=== PATIENT | female | born 1965 | race Caucasian/White ===

== ENCOUNTER 2022-07-29 10:43 | Outpatient (CLI) | payer MEDICARE, SELFPAY ==
--- NOTE | ~2022-07-29 | XR_ITS ---
XR lumbar spine min 4V 07/29/2022 11:19 Indication: Low back pain Procedure: 5 views lumbar spine Comparison: No prior studies for comparison. Findings: There is disc narrowing at L4-5 and L5-S1. There is moderate facet hypertrophy at L5-S1. No acute fracture or traumatic malalignment. Pedicles intact. Sacral foramen are symmetric. There are cholecystectomy clips. Impression: 1: Mild-moderate lower lumbar spondylosis. Reviewed, dictated and finalized at location A. Impression: 1: Mild-moderate lower lumbar spondylosis.
[2022-07-29 11:43] LABS: Anion Gap 9 mmol/L (8-16); Blood Urea Nitrogen 12 mg/dL (7-17); Calcium 9.6 mg/dL (8.4-10.2); Carbon Dioxide 28 mmol/L (22-30); Chloride 96 mmol/L (98-107); Estimated Glomerular Filt Rate > 60; Glucose 86 mg/dL (65-110); Potassium 4.1 mmol/L (3.4-5.0); Sodium 133 mmol/L (137-145)
[2022-07-29 12:02] LABS: Appearance Urine Clear (Clear); Bilirubin Urine Negative (Negative); Blood Urine Negative (Negative); Color Urine Yellow (Yellow); Glucose Urine UA Negative (Negative); Ketones Urine Negative (Negative); Leukocyte Esterase Ur Trace LEU/UL (Negative); Nitrate Urine Negative (Negative); Protein Urine Negative (Negative); Specific Grav Ur <= 1.005 (1.001-1.035); Urobilinogen Urine 0.2 mg/dL (<2.0)
[2022-07-29 12:04] LABS: Basophils Percent Auto 0.6 % (0.2-1.2); Eosinophils Absolute Auto 0.1 K/mm3 (0-0.3); Eosinophils Percent Auto 1.3 % (0-4.4); Hematocrit 37.4 % (37.0-47.0); Hemoglobin 13.2 g/dL (12.0-15.0); Immature Granulocyte Absolute 0.02 K/mm3 (0.00-0.031); Immature Granulocyte Percent A 0.4 % (0-0.5); Lymphocytes Absolute Auto 1.42 K/mm3 (0.9-3.2); Lymphocytes Percent Auto 26.9 % (18.3-44.2); Mean Corpuscular HGB Conc 35.3 g/dl (32-36); Mean Corpuscular Hemoglobin 33.3 pg (26-34); Mean Corpuscular Volume 94.4 fl (80-100); Mean Platelet Volume 9.8 fl (7.4-10.4); Monocytes Absolute Auto 0.5 K/mm3 (0.1-0.6); Monocytes Percent Auto 8.5 % (2.6-8.5); Neutrophils Absolute Auto 3.3 K/mm3 (1.3-6.7); Neutrophils Percent Auto 62.3 % (45.5-73.1); Platelet Count Result 231 k/mm3 (150-375); Red Blood Count 3.96 M/mm3 (4.2-5.4); Red Cell Distribution Width 11.2 % (11.5-14.5); White Blood Count 5.3 K/mm3 (4.5-10.0)
[2022-07-29 12:10] LABS: RBC Urine 0-2 /hpf (0-2); WBC Urine 0-3 /hpf
[2022-07-29 12:11] LABS: Add Urine Microscopic? YES
== END 2022-07-29 10:44 | disposition home or self-care (01) ==
PROVIDERS: PCP Internal Medicine; Visit Provider Neurological Surgery
DX: Z01.818 Encounter for other preprocedural examination (principal); M54.9 Dorsalgia, unspecified; M47.816 Spondylosis without myelopathy or radiculopathy, lumbar region
CPT/HCPCS: 36415; 72110; 80048; 81001; 85025; 85610; 85730; 86850; 86900; 86901

== ENCOUNTER 2022-08-01 13:59 | Outpatient (CLI) | payer MEDICARE, SELFPAY ==
[2022-08-01 14:44] LABS: Prothrombin Time 13.1 Seconds (11.1-14.7)
[2022-08-01 14:45] LABS: Partial Thromboplastin Time 28.5 SECONDS (22.3-36.8)
== END 2022-08-01 14:00 | disposition home or self-care (01) ==
PROVIDERS: PCP Internal Medicine; Visit Provider Neurological Surgery
DX: D68.9 Coagulation defect, unspecified (principal)
CPT/HCPCS: 36415; 85610; 85730

== ENCOUNTER 2022-08-03 13:26 | Outpatient (CLI) | payer MEDICARE, SELFPAY ==
--- NOTE | 2022-08-03 13:37 | ECG_ITS ---
Measurements Intervals [place] Rate: 76 P: 37 FL: 151 QRS: 78 QRSD: 84 T: 44 QT: 392 QTc: 441 Interpretive Statements SINUS RHYTHM NONSPECIFIC ST-T-WAVE ABNORMALITY NO PREVIOUS ECG AVAILABLE FOR COMPARISON Electronically Signed On 08-03-2022 17:39:01 CDT by Windy Bae M.D.
== END 2022-08-03 13:27 | disposition home or self-care (01) ==
LOC: ANHSURGERY 13:30
PROVIDERS: PCP Internal Medicine; Visit Provider Neurological Surgery
DX: Z01.818 Encounter for other preprocedural examination (principal); M48.062 Spinal stenosis, lumbar region with neurogenic claudication; R94.31 Abnormal electrocardiogram [ECG] [EKG]
CPT/HCPCS: 36415; 86850; 86900; 86901; 93005

== ENCOUNTER 2022-08-14 03:08 | Day surgery (SDC) | payer MEDICARE, SELFPAY ==
[2022-08-02 09:44] VITALS: BMI 35.2
--- NOTE | 2022-08-02 09:59 | PC.NURSE ---
Report to the Outpatient Waiting Room, entrance under the green pavilion located off [facility], at time 6:30 on date 08/14/22. OR Time: 8:30. Time changes happen often and if your time is changed the preop area will call you the afternoon before. - You and your visitor will be asked to self-screen and do not enter if you have any COVID symptoms. - Only one visitor and NO children visitors are allowed at this time. - The patient visitor is requested to leave or wait in car when not with patient due to restrictions. - A mask is required within the hospital. Patients may have clear liquids (water, carbonated beverages, clear teas, apple juice) until 3 hours prior to surgery (5:30) with a maximum of 20 ounces. - No food from midnight until time of surgery Take the following medications with a SIP of water the morning of surgery: KLONOPIN, GABAPENTIN, PAIN PILL IF NEEDED, PAXIL, GEODON Medications to discontinue per physician: MELOXICAM Date to take last dose: 08/06/22 (PER DR PER PT) Please no make-up, nail turkish, hairspray, perfume, deodorant, or body powder the day of surgery. No jewelry (including any body piercings) or valuables the day of surgery, leave them at home. Please take a shower or bath the night before, or the morning of, surgery with an antibacterial soap. Wear comfortable, loose fitting clothing. - Jewelry must be removed prior to entering the operating room. Rings and piercings that are not removed may be cut off. - The hospital will not accept responsibility for valuables. - Please leave all valuables, including medications, at home the day of surgery. If you are going home after surgery, a licensed class b driver must drive you home. - NO public transportation without another adult. - We recommend that an adult stay with you for 24 hours following discharge. - We also recommend that you do not drive, make important decision, drink alcoholic beverages, or take any drugs that were not prescribed by your health care provider for at least 24 hours after your discharge time. Follow any additional instructions given to you from your surgeon. If you or anyone in your household have experienced Covid symptoms in the past week, please notify your surgeon or the nurse liaison at the phone number below for possible testing. Telephone instructions given to PT - WICHO GRAHAM and asked if any additional questions and then verbalized understanding. Patient advised to call surgeon office or pre surgery nurse liaison [phone] if any additional questions.
[2022-08-14] VITALS (9 sets, daily range): BP systolic 114–164; BP diastolic 68–96; PULSE 70–89; RESP 14–20; TEMP 36.2–37.2; O2SAT 96–100
--- NOTE | ~2022-08-14 | XR_ITS ---
EXAMINATION: XR fluoroscopy no charge DATE: 08/14/2022 10:53 INDICATION: Lumbar decompression TECHNIQUE: 2 lateral fluoroscopic images of the lumbar spine were obtained during procedure performed by Dr. Chance. Radiologist was not present for the imaging or procedure. The amount of fluoroscopy ti me used during this procedure was 0.1 minutes. COMPARISON: 07/29/2022 FINDINGS: Initial image demonstrates a linear metallic density likely either a probe or needle projecting over the posterior margin of the L4 spinous process. Subsequent image demonstrates soft tissue retractors project over the surgical soft tissue defect overlying the lower lumbar spinous processes. A metallic probe projects over the L4 inferior articular process. Visualized vertebral body and disc heights ar e normal with mild degenerative endplate changes. IMPRESSION: 1. Fluoroscopy utilized during surgical procedure at the lower lumbar spine. See procedure note for f urther detail. Reviewed, dictated and finalized at location A. IMPRESSION: 1. Fluoroscopy utilized during surgical procedure at the lower lumbar spine. Se e procedure note for further detail.
--- NOTE | 2022-08-14 07:24 | WPDANESEPPF ---
Anes - Initial Pre Proc Eval Procedure: Operation Date: 08/14/22 08:30 Proposed Procedures p L4-L5 Lumbar Decompression - Dominga Chance MD Date/Time: 08/14/22 07:24 Surgeon: Dominga Chance MD Pre Op Diagnosis: lumbar stenosis Patient Data Age: 56 Gender: F Height: 1.52 m Weight: 79.8 kg Last Vital Signs Temp 37.2 C 08/14/22 07:02 Pulse 89 08/14/22 07:02 Resp 16 08/14/22 07:02 BP 127/78 08/14/22 07:02 Pulse Ox 98 08/14/22 07:02 O2 Del Method Room Air 08/14/22 07:02 Allergies Allergy/AdvReac Type Severity Reaction Status Date / Time No Known Allergies Allergy Verified 08/14/22 06:57 Home Medications Medication Instructions Recorded Confirmed Type clonazepam 1 mg tablet 1 mg PO DAILY 07/26/22 08/14/22 History gabapentin 300 mg capsule 300 mg PO DAILY 07/26/22 08/14/22 History hydrocodone 7.5 mg-acetaminophen 1 tablet PO Q6H PRN Pain 07/26/22 08/14/22 History 325 mg tablet meloxicam 15 mg tablet 15 mg PO DAILY 07/26/22 08/14/22 History paroxetine HCl 10 mg tablet 10 mg PO DAILY 07/26/22 08/14/22 History ziprasidone HCl 80 mg capsule 80 mg PO BID 07/26/22 08/14/22 History pravastatin 40 mg tablet 40 mg PO DAILY 07/28/22 08/14/22 History temazepam 15 mg capsule 15 mg PO HS PRN Insomnia 08/02/22 08/14/22 History Patient hx anesthesia problems: none Family hx anesthesia problems: none Results Review: All pre-operative results and documents have been reviewed as part of the pre-operative evaluation. FORMERLY [facility], [facility] Past Medical History Medical History (Updated 08/14/22 @ 07:25 by Jasiel Wray MD) Acute arthritis COPD (chronic obstructive pulmonary disease) Low back pain, unspecified Obesity Surgical History Surgical History Total knee replacement status Family History Family History Other Heart disease Hypertension Social History Social History Smoking packs per day: 2 Smoking cigarettes per day: 40.0 Years smoked: 30 Smoking pack-years: 60.00 Smoking status: Current every day smoker Tobacco type: e-cigarettes/vaping Additional smoking assessment comments: QUIT CIGARETTES 2009, NOW VAPING Alcohol intake: never Substance use: never Substance use type: does not use Living arrangements: with family Spiritual care concerns: No Anes - Eval Final PreProcedure Day of Procedure 08/14/22 07:24 Patient weight: obese Heart: regular rate and rhythm Lungs: clear to auscultation Airway: Mallampati scale class II Neurological: alert and oriented Last oral intake: >/= 8 hours ASA classification: III Emergent: no Anesthetic plan: proceed Anesthesia type and monitoring: general ETT and standard monitoring Results Review: All pre-operative results and documents have been reviewed as part of the pre-operative evaluation. Informed Consent: The patient's anesthetic plan and its attendant risks and benefits were discussed with the patient/family/POA. Questions were solicited and answers provided to the satisfaction of the patient/family/POA.
[2022-08-14] MEDS: LACTATED RINGERS 1,000 ML 30 ML IV CONT ×2 (07:30→10:44)
--- NOTE | 2022-08-14 08:42 | WPDHPUPDATE1 ---
History and Physical Update Update Date/Time: 08/14/22 08:42 History and Physical has been reviewed, including an updated exam of the patient. There are NO changes in the patient's condition. Risks, benefits, and alternatives have been discussed and questions answered. Patient agrees to proceed with procedure. Plan is for lumbar decompression L4-5
[2022-08-14] MEDS: ceFAZolin 2 GM/D5W 50 ML 2 GM/50 ML BAG IVPB (09:04)
[2022-08-14] MEDS: BUPIVACAINE/EPINEPHRINE 0.25% 50 ML VIAL INFILTRATE (09:47)
--- NOTE | 2022-08-14 10:23 | W.PM.PROC2 ---
Procedure Note - Detailed Date of Procedure 08/14/22 Pre-op Diagnosis lumbar stenosis Post-op Diagnosis Same Procedure Performed Lumbar laminectomy and medial facetectomy L4-5 Surgeon Dominga Chance MD Anesthesia General Indications Radha Machado is a very pleasant 56 year old female who presents at the request of Dr. Ferris with signs and symptoms of claudicatory low back and lower extremity pain that fits best with an L5 distribution in the setting of lumbar stenosis most pronounced at L4-5 on imaging.? Radha has tried treatments that include formal physical therapy as well as a single epidural steroid injection targeting L4-5 that gave significant pain relief but for less than 1 week.? In the office today the most concerning symptom to the patient is that she is unable to stand or walk any significant distance without pain.? She is taking chronic narcotics.? She uses a scooter to get around when she has to do shopping at a store like [employer]. The patient and I have had an extended discussion in the office regarding the options for management of these clinical symptoms and radiographic findings. We have discussed the option of additional physical therapy or repeated interventional pain management strategies including KOURTNEY or ablative procedures. In this case we have more specifically discussed that is these measures have not given lasting relief over the past 4 months, the likelihood the repeated attempts would offer different result a small Finally, we have generally discussed the option of surgery. In the absence of functional deficits, I have explained that my preference is to exhaust non surgical options prior to consideration of surgery. However, we have discussed that as she has been unable to obtain durable relief of symptoms with non surgical measures that it would be very reasonable to consider surgical intervention. In this case we have discussed that surgery would likely entail a lumbar decompression at L4-5.? AP lateral and dynamic plain x-rays did not show significant scoliosis, listhesis, or dynamic instability Radha is inclined to pursue surgery. I have discussed the indications as well as the risks of surgery including but not limited to bleeding, infection, CSF leak, numbness, weakness, paralysis, stroke, coma, even . We have discussed the fundamentals of the surgical procedure as well as the typical recovery from surgery.? She indicates understanding and asks us to proceed with surgery, specifically a lumbar decompression at L4-5 Description of Procedure The patient was brought into the operating room where general anesthesia was induced.? Appropriate monitoring was obtained.? The patient was turned into a prone position on the Dre table with a Nico frame.? Extremeties were padded.? The patient was secured with straps to the table.? Localization was performed using intraoperative fluoroscopy and the L4-5 level was identified. The patient's back was prepped and draped sterilely.? A surgical time out was performed.? The planned incision was infused with local anesthetic.? The incision was made using a #10 skin blade.? Hemostasis was achieved. Self retaining retractors were placed and advanced.? The L4 and L5 spinous proceeses were identified and the muscle was dissected off of the spinous process and lamina of L4 and L5 using bovie electrocautery.? Self retaining retractors were advanced. Attention was first turned to the L4-5 level.? A curette was placed under the L4 lamina and the L4-5 level was confirmed again using intraoperative fluoroscopy.? The spinous process of L4 was removed using a rongeur.? The lamina was drilled using a high speed lloyd drill with a matchstick tip.? The lamina was drilled lateral to the level of the facet complex until, inferiorly, ligament was visible.? The lamina was thinned and then dissected from the lamina using a curette.? The remaining lamina and medial facet at L4-5 were removed with kerossen pun
[2022-08-14] MEDS: oxyCODONE HCL (*CRX) 5 MG TAB IR PO (11:49)
== END 2022-08-14 12:30 | disposition home or self-care (01) ==
PROVIDERS: PCP Internal Medicine; Visit Provider Neurological Surgery
PROC: (CPT 22612; principal; 2022-08-14 08:30)
DX: M48.062 Spinal stenosis, lumbar region with neurogenic claudication (principal); J44.9 Chronic obstructive pulmonary disease, unspecified; E66.9 Obesity, unspecified; Z68.34 Body mass index [BMI] 34.0-34.9, adult; F17.290 Nicotine dependence, other tobacco product, uncomplicated
CPT/HCPCS: 63047; 36415; 72110; 80048; 81001; 85025; 85610; 85730; 86850; 86900; 86901; 93005; 99199; A9270; C9290; J0690; J1100; J1170; J2250; J2370; J2405; J2704; J2710; J3010; J3370; J7120